=== PATIENT | female | born 1990 | race Caucasian/White ===

== ENCOUNTER 2016-09-12 16:48 | Inpatient (IN) | payer OTHER ==
[~2016-09-12] VITALS: Ht 162.6 cm; Wt 108.0 kg
[2016-09-12] MEDS ORDERED: LACTATED RINGER'S 1,000 ML IV PRN (17:00)
[2016-09-12 17:09] VITALS: Ht 162.6 cm; Wt 108.0 kg
[2016-09-12] MEDS ORDERED: PRENAT PO (17:13)
[2016-09-12 17:29] LABS: ADD SCAN DIFF NO
[2016-09-12] MEDS ORDERED: AMPICILLIN 2 GM/NS (PMX) 100 ML IV ONE (17:30)
[2016-09-12] MEDS ORDERED: METHYLERGONOVINE 0.2 MG INJ IM PRN (17:30)
[2016-09-12] MEDS ORDERED: MISOPROSTOL 200 MCG TAB PR PRN (17:30)
[2016-09-12] MEDS ORDERED: OXYTOCIN 30 UNITS/LR 500 ML IV PRN (17:30)
[2016-09-12] MEDS ORDERED: OXYTOCIN 30 UNITS/LR 500 ML IV SCH ×2 (17:30)
[2016-09-12] MEDS ORDERED: LIDOCAINE 1% (MPF) 30 ML INJ INJ PRN (17:30)
[2016-09-12] MEDS ORDERED: BUTORPHANOL 2 MG INJ IV PRN (17:30)
[2016-09-12] MEDS ORDERED: IBUPROFEN 600 MG TAB PO PRN (17:30)
[2016-09-12] MEDS ORDERED: CARBOPROST 250 MCG INJ IM PRN (17:30)
[2016-09-12 17:31] LABS: BASOPHILS % 0.1 % (0.0-2.0); EOSINOPHILS % 0.4 % (0.0-7.0); HEMATOCRIT 37.1 % (37.0-47.0); HEMOGLOBIN 12.7 g/dl (12.0-16.0); LYMPHOCYTES # 1.9 10^3/ul (0.8-2.9); LYMPHOCYTES % 18.5 % (15.0-51.0); MEAN CORPUSCULAR HEMOGLOBIN 31.4 pg (29.0-33.0); MEAN CORPUSCULAR HGB CONC 34.2 g/dl (32.0-37.0); MEAN CORPUSCULAR VOLUME 91.6 fl (82.0-101.0); MEAN PLATELET VOLUME 10.4 fl (7.4-10.4); MONOCYTE # 0.5 10^3/ul (0.3-0.9); NEUTROPHIL # 7.9 10^3/ul (1.6-7.5); NEUTROPHILS % 75.5 % (39.0-77.0); PLATELET COUNT 272 10^3/UL (140-415); RED BLOOD COUNT 4.05 10^6/ul (4.20-5.40); RED CELL DISTRIBUTION WIDTH 12.8 % (11.5-14.5); WHITE BLOOD COUNT 10.5 10^3/ul (4.8-10.8)
[2016-09-12 17:46] LABS: INR 0.92; PROTIME 12.4 Sec (12.2-14.2)
[2016-09-12 17:47] LABS: PARTIAL THROMBOPLASTIN TIME 26.3 Sec (25.0-35.0)
[2016-09-12] MEDS ORDERED: DINOPROSTONE 10 MG VAG SUPP VAG ONE (18:00)
[2016-09-12] MEDS: LACTATED RINGER'S 1,000 ML IV SCH ×2 (19:21→21:46)
[2016-09-12] MEDS ORDERED: AMPICILLIN 1 GM/NS (PMX) 50 ML IV SCH (21:30)
[2016-09-13] MEDS: LACTATED RINGER'S 1,000 ML IV SCH ×3 (06:25→14:48)
[2016-09-13] MEDS ORDERED: FENTAnyl 2MCG/ML-ROPIV 0.2% 100 ML ONE (10:50)
[2016-09-13] MEDS ORDERED: EPHEDrine SULFATE 50 MG/5 ML SYG IV PRN (11:00)
[2016-09-13] MEDS ORDERED: NALOXONE (0.4 MG/ML) INJ IV PRN (11:00)
[2016-09-13] MEDS ORDERED: ONDANSETRON 4 MG INJ IV PRN ×2 (11:00→21:30)
[2016-09-13] MEDS ORDERED: FENTAnyl 2MCG/ML-ROPIV 0.2% 100 ML BAG EPI SCH (11:00)
--- NOTE | 2016-09-13 12:12 | NSTRPT ---
NST Information Datetime Report Generated by CPN: 09/13/2016 12:12 Datetime: 09/12/2016 08:09 NST Information EGA: 40.4 Test Number: 10 Time on Monitor: 09/12/2016 08:23 Time off Monitor: 09/12/2016 08:45 NST Duration (Min): 22 Reason for NST: Other Reason for NST Other: Abnormal AFP, Post Dates Test and Monitor Explained: Monitor Explained; Test Explained; Verbalized Understanding Pulse: 95 Resp: 16 SBP: 121 DBP: 70 Test Evaluation NST Interventions: None Patient States Movement: Present Contraction Frequency: no uc FHR Baseline : 150 Variability: Moderate 6-25bpm Accelerations: 15X15 Decelerations: None FHR Category: Category I NST Results: Reactive Comments: PT TO U/S. Cephalic, db 7.5 Dr. Ferguson called and informed of DB 7.5cm, post-dates. Orders received to have pt report to [facility] at 1700 today for scheduled induction. 0845-Pt discharged home with labor precautions, kick counts discussed, instructions given t o report to [facility] at 1700 today for scheduled induction per DrKhushi Ferguson's orders. Pt verbalized underst anding and denies questions. Electronically Signed By E-Signature: with User ID: [id number] Datetime: 09/09/2016 08:13 NST Information EGA: 40.1 NST Duration (Min): 38 Datetime: 09/05/2016 08:20 NST Information EGA: 39.4 NST Duration (Min): 24 Datetime: 09/02/2016 08:33 NST Information EGA: 39.1 NST Duration (Min): 26 Datetime: 08/29/2016 08:10 NST Information EGA: 38.4 NST Duration (Min): 27 Datetime: 08/26/2016 08:23 NST Information EGA: 38.1 NST Duration (Min): 32 Datetime: 08/22/2016 08:00 NST Information EGA: 37.4 NST Duration (Min): 41 Datetime: 08/19/2016 08:18 NST Information EGA: 37.1 NST Duration (Min): 30 Datetime: 08/15/2016 07:59 NST Information EGA: 36.4 NST Duration (Min): 20 Datetime: 08/12/2016 08:30 NST Information EGA: 36.1 Datetime: 08/12/2016 08:23 NST Duration (Min): 32
[2016-09-13] MEDS ORDERED: OXYTOCIN 30 UNITS/LR 500 ML IV SCH (17:10)
--- NOTE | 2016-09-13 19:35 | LDN ---
Date/Time of Note Date/Time of Note DATE: 09/13/16 TIME: 19:31 Delivery Summary Normal spontaneous vaginal delivery of a baby girl from OA position shoulders delivered without any difficulty rest of the baby's body follow placenta spontaneous expulsion inspected complete patient sustained small first-degree perineal laceration estimated blood loss 200 cc Weeks of Gestation 40 weeks 5 day Placenta Delivered: Spontaneously Meconium: none Episiotomy: No Laceration repair: First-degree perineal laceration repaired with 3-0 chromic catgut Anesthesia type: Epidural Sponge & Needle done & correct: Yes All needle counts correct: Yes Any foreign bodies felt in the: No Problems: Infant Delivery Information Sex Infant Sex: female Apgars 1 Minute: 8 5 Minute: 9 Suctioning Delee suction performed: No Umbilical Cord Umbilical cord with: 3 Vessels Cord presentations: no nuchal cord Cord Blood was obtained: Yes KIM HERNANDEZ MD September 13, 2016 19:35
--- NOTE | 2016-09-13 19:44 | HP ---
Date/Time of Note Date/Time of Note DATE: 09/13/16 TIME: 19:37 OB - History Hx of Present Free Text/Dictation This is a 25 years old 17 admitted at [facility] at 40 weeks and 5 days in September 12, 2016 for induction of labor 40 weeks and 5 days patient has been under the care of the [facility] and her has not been complicated with gestational diabetes -induced hypertension or any other serious medical or surgical condition pelvic examination on admission cervix closed 30% effaced vertex at -2 station patient underwent Cervidil induction after the procedure for induction discussed with the patient Chief Complaint: Induction of labor Estimated Due Date: September 08, 2016 : 1 Para: 0 Care: Good Care Ultrasounds: Normal mid trimester US Obstetrical Complications: None Medical Complications: None Past Family/Social History * Past Medical, Surgical, Family and Obstetric Histories reviewed from chart. RPR/VDRL: Negative GBS Status: Negative HBsAG: Negative OB Admission Exam Physical Exam HEENT: WNL Heart: Rhythm Normal Lungs: Clear, Equal Abdomen: WNL Extremities: Normal Reflexes: Normal Cervical Dilatation: None Effacement: 0% Station: -2 Membranes: Intact Heart Rate: 130's Accelerations: Accelerations Present Decelerations: No Decelerations Varibility: Moderate Contractions on Admission: None Last 72 hours Lab Results CBC & BMP 09/12/16 17:00 KIM HERNANDEZ MD September 13, 2016 19:44
--- NOTE | 2016-09-13 20:39 | DELSUM ---
Delivery Summary A-C Datetime Report Generated by CPN: 09/13/2016 20:38 DELIVERY PERSONNEL Electronics Engineering Technician: OANH RN ORT MATERNAL INFORMATION Delivery Anesthesia: Epidural Medications in Delivery: OXYTOCIN 30 U IN LR Estimated Blood Loss (ml): 200 Placenta Cultured: Yes Maternal Complications: None LABOR SUMMARY EDC: 09/08/2016 00:00 No. Babies in Womb: 1 Attempted: No Labor Anesthesia: Epidural LABOR INFORMATION Reason for Induction: Postterm Onset of Labor: 09/13/2016 23:00 Complete Dilatation: 09/13/2016 16:27 Cervical Ripening Agents: Cervidil Oxytocin: Augmentation Group B Beta Strep: Negative Antibiotics # of Doses: 0 Steroids Given: None Reason Steroids Not Administered: Not Applicable MEMBRANES Membranes Rupture Method: Artificial Rupture of Membranes: 09/13/2016 14:40 Length of Rupture (hr): 3.82 Amniotic Fluid Color: Clear Amniotic Fluid Amount: Moderate Amniotic Fluid Odor: None STAGES OF LABOR Stage 1 hr: -6 Stage 1 min: -33 Stage 2 hr: 2 Stage 2 min: 2 Stage 3 hr: 0 Stage 3 min: 2 Total Time in Labor hr: -4 Total Time in Labor min: -29 VAGINAL DELIVERY Episiotomy: None Laceration Extension: First Degree Laceration Type: Perineal Laceration Repair: Yes Initial Vag Sponge Count: 20 Final Vag Sponge Count: 20 Initial Vag Sharps Count: 1 Final Vag Sharps Count: 2 Sponge Count Correct: Yes; Vaginal Sweep Performed Sharps Count Correct: Yes BABY A INFORMATION Delivery Date/Time: 09/13/2016 18:29 Method of Delivery: Vaginal Born in Route : No : N/A Forceps: N/A Vacuum Extraction: N/A Shoulder Dystocia : N/A SHOULDER DYSTOCIA BABY A Infant Delivery Date/Time: 09/13/2016 18:29 PRESENTATION/POSITION BABY A Presentation: Cephalic Presentation: Cephalic Cephalic Presentation: Vertex Vertex Position: Left Occipital Anterior Breech Presentation: N/A PLACENTA INFORMATION BABY A Placenta Delivery Time : 09/13/2016 18:31 Placenta Method of Delivery: Spontaneous Placenta Status: Delivered SCORES BABY A Heart Rate 1 min: >100 bpm Resp Effort 1 min: Good Cry Reflex Irritability 1 min: Cough/Sneeze/Pulls Away Muscle Tone 1 min: Active Motion Color 1 min: Blue/Pale Resuscitation Effort 1 min: Tactile Stimulation SCORE 1 MIN: 8 Heart Rate 5 min: >100 bpm Resp Effort 5 min: Good Cry Reflex Irritability 5 min: Cough/Sneeze/Pulls Away Muscle Tone 5 min: Active Motion Color 5 min: Body Minor, Extremit Blue Resuscitation Effort 5 min: N/A SCORE 5 MIN: 9 INFANT INFORMATION BABY A Gestational Age at Delivery: 40.4 Gestational Status: Full Term- 39- 40.6 Weeks Outcome : Liveborn Infant Condition : Stable Sex: Female IDENTIFICATION/MEDS BABY A ID Band Number: [id number] ID Band Location: Right Leg; Left Arm Sensor Applied: Yes Sensor Number: [id number] Sensor Location : Cord Clamp Vitamin K Given : Not Given Erythromycin Given: Not Given WEIGHT/LENGTH BABY A Infant Birthweight (gm): 2980 Weight (lb): 6 Infant Weight (oz): 9 Infant Length (in): 19.00 Length (cm): 48.26 CORD INFORMATION BABY A No. Cord Vessels: 3 Nuchal Cord : N/A Nuchal Cord- Other: 0 True Knot: 0 Cord Blood Taken: Yes Banking/Donate Info: N/A Suction: Mouth; Nose ASSESSMENT BABY A Infant Complications: None Physical Findings at Delivery: Within Normal Limits Respirations: Appears Normal Business Analyst Sales Operations/ALS Called : Yes Care By: MELIZA CERTIFIED RESIDENTIAL MEDICATION AIDE Transferred To: Nursery
[2016-09-13 20:50] VITALS: BP 102/62; PULSE 98; RESP 18
[2016-09-13] MEDS ORDERED: DIBUCAINE 1% 30 GM OINT PR PRN (21:30)
[2016-09-13] MEDS ORDERED: LANOLIN 7 GM TUBE TOP PRN (21:30)
[2016-09-13] MEDS ORDERED: BENZOCAINE 20% 56 ML SPRAY TOP PRN (21:30)
[2016-09-13] MEDS ORDERED: ACETAMINOPHEN/CODEINE #3 TAB PO PRN ×2 (21:30)
[2016-09-13] MEDS ORDERED: ACETAMINOPHEN 325 MG TAB PO PRN (21:30)
[2016-09-13] MEDS ORDERED: OXYCODONE/ASPIRIN (4.88/325) TAB PO PRN ×2 (21:30)
[2016-09-13] MEDS ORDERED: WITCH HAZEL/GLYCERIN PAD PR PRN (21:30)
[2016-09-13 22:20] VITALS: BP 109/61; PULSE 96; RESP 18
[2016-09-13] MEDS: OXYTOCIN 30 UNITS/LR 500 ML IV SCH (23:04)
[2016-09-14] VITALS: BP 119/66; PULSE 86; RESP 18
[2016-09-14] MEDS: IBUPROFEN 600 MG TAB PO SCH ×4 (00:02→17:51)
[2016-09-14] MEDS: OXYTOCIN 30 UNITS/LR 500 ML IV SCH (01:19)
[2016-09-14 04:30] VITALS: BP 106/68; PULSE 80; RESP 18
[2016-09-14 07:59] LABS: ADD SCAN DIFF NO
[2016-09-14 08:00] LABS: BASOPHILS % 0.2 % (0.0-2.0); EOSINOPHILS % 0.2 % (0.0-7.0); HEMATOCRIT 31.4 % (37.0-47.0); HEMOGLOBIN 10.4 g/dl (12.0-16.0); LYMPHOCYTES # 1.9 10^3/ul (0.8-2.9); LYMPHOCYTES % 18.9 % (15.0-51.0); MEAN CORPUSCULAR HGB CONC 33.1 g/dl (32.0-37.0); MEAN CORPUSCULAR VOLUME 93.7 fl (82.0-101.0); MEAN PLATELET VOLUME 10.9 fl (7.4-10.4); MONOCYTE # 0.8 10^3/ul (0.3-0.9); MONOCYTES % 7.7 % (0.0-11.0); NEUTROPHIL # 7.5 10^3/ul (1.6-7.5); NEUTROPHILS % 72.6 % (39.0-77.0); PLATELET COUNT 199 10^3/UL (140-415); RED BLOOD COUNT 3.35 10^6/ul (4.20-5.40); RED CELL DISTRIBUTION WIDTH 13.2 % (11.5-14.5); WHITE BLOOD COUNT 10.3 10^3/ul (4.8-10.8)
[2016-09-14 08:20] VITALS: BP 110/67; PULSE 94; RESP 17
[2016-09-14] MEDS: MULTIVIT/MIN/FOLATE/IRON/PREN TAB PO SCH (09:18)
--- NOTE | 2016-09-14 13:08 | PN ---
Date/Time of Note Date/Time of Note DATE: 09/14/16 TIME: 13:08 OB Subjective Subjective Subjective Post normal vaginal delivery day 1 Afebrile VSs stable abdomen soft uterus firm lochia normal extremity normal KIM HERNANDEZ MD September 14, 2016 13:08
[2016-09-14 16:00] VITALS: BP 110/70; PULSE 90; RESP 18
[2016-09-14 20:20] VITALS: BP 103/56; PULSE 84; RESP 18
[2016-09-14] MEDS ORDERED: SENNA/DOCUSATE NA (8.6MG/50MG) TAB PO SCH (21:00)
[2016-09-15] MEDS: IBUPROFEN 600 MG TAB PO SCH ×3 (00:43→12:00)
[2016-09-15 04:00] VITALS: BP 115/69; PULSE 89; RESP 18
[2016-09-15 08:20] VITALS: BP 107/65; PULSE 89; RESP 18
[2016-09-15] MEDS ORDERED: MEASLES,MUMPS,RUBELLA VACCINE INJ SC* ONE (09:00)
[2016-09-15] MEDS: MULTIVIT/MIN/FOLATE/IRON/PREN TAB PO SCH (09:21)
--- NOTE | 2016-09-15 11:07 | PD.PPDC ---
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
--- NOTE | 2016-09-15 11:10 | DS ---
Date/Time of Note Date/Time of Note DATE: 09/15/16 TIME: 11:08 Discharge Summary Admission/Discharge Info Admit Date/Time September 12, 2016 at 16:48 Discharge Date/Time September 15, 2006 at 11 AM Final Diagnosis Post normal vaginal delivery Patient Condition: Good Procedures Normal spontaneous vaginal delivery Hx of Present Illness Term Hospital Course Satisfactory uneventful Home Meds Reported Medications Multivit/Min/Fol Ac/Iron/Pren* ( S*) 1 Tab Tab, 1 TAB PO DAILY, TAB 09/12/16 Follow-up Plan instructions given recommended to make appointment in 2 weeks to be seen at the clinic KIM HERNANDEZ MD September 15, 2016 11:10
== END 2016-09-15 13:08 | disposition home or self-care (01) | DRG 775 ==
LOC: L-D 16:48 → PP1 09-13 21:09
PROVIDERS: ADMIT Obstetrics & Gynecology; ATTEND Obstetrics & Gynecology
PROC: 3E0P7GC Introduction of Other Therapeutic Substance into Female Reproductive, Via Natural or Artificial Opening (ICD-10-PCS; 2016-09-12)
PROC: 10E0XZZ Delivery of Products of Conception, External Approach (ICD-10-PCS; principal; 2016-09-13)
PROC: 0HQ9XZZ Repair Perineum Skin, External Approach (ICD-10-PCS; 2016-09-13)
DX: O99.214 Obesity complicating childbirth (principal); Z68.41 Body mass index [BMI] 40.0-44.9, adult; O70.0 First degree perineal laceration during delivery; E66.01 Morbid (severe) obesity due to excess calories; Z37.0 Single live birth; Z3A.40 40 weeks gestation of pregnancy
CPT/HCPCS: 62319; 85025; 85610; 85730; 86592; 86900; 86901; 87340; 88307; 99464; J2590; J3010; J7120